=== PATIENT | male | born 1960 | race Hispanic/Latino ===

== ENCOUNTER 2018-11-29 07:09 | Day surgery (SDC) | payer MEDICARE, MEDICAID ==
[2018-08-12 10:08] VITALS: BMI 30.8
[2018-11-29] MEDS ORDERED: Lidocaine 1% Inj (20ml) ONE (08:05)
[2018-11-29] MEDS ORDERED: Propofol 10 mg/ml Inj (20 ML) ONE ×6 (08:05→09:44)
[2018-11-29] MEDS ORDERED: Midazolam 2 MG/2 ML VIAL ONE (08:59)
[2018-11-29] MEDS ORDERED: Sodium Chloride 0.9% 1,000 ML IV SCH (10:00)
[2018-11-29 14:28] VITALS: BP 141/82; PULSE 70; RESP 19; TEMP 97.5; O2SAT 96
== END 2018-11-29 11:19 | disposition home or self-care (01) ==
LOC: ENDO 07:09
PROVIDERS: ATTEND Internal Medicine Gastroenterology
DX: Z12.11 Encounter for screening for malignant neoplasm of colon (principal); D12.2 Benign neoplasm of ascending colon; K63.5 Polyp of colon; K64.1 Second degree hemorrhoids; K59.00 Constipation, unspecified
CPT/HCPCS: 45381; 45385; 88305; J2250; J2704; J7030; J7040